=== PATIENT | male | born 1930 | race Caucasian/White ===

== ENCOUNTER 2017-03-16 07:16 | Emergency (ER) | payer OTHER, MEDICARE ==
[2017-03-16 07:34] VITALS: RESP 18; TEMP 98; O2SAT 97
--- NOTE | 2017-03-16 07:46 | EDPHY ---
H & P Time Seen by Provider: 03/16/17 07:26 HPI/ROS: HPI Skin tear. 87-year-old male by private vehicle. This patient was on a stepladder this last Tuesday. He slipped with his left foot. His left reynolds caught the edge of a ladder wrong and he sustained a skin tear to his mid anterior leg over the tibia. Reports he has been putting bacitracin on it and keeping it clean but it has not been healing. He denies any pain with weight-bearing on the left leg. No other injury or complaint. ROS: Constitutional: No fever, no chills. No weakness. Respiratory: No cough. No shortness of breath. Cardiac: No chest pain, no palpitations. Gastrointestinal: No abdominal pain, no vomiting, no diarrhea. Musculoskeletal: No back pain. No neck pain. As above. Skin: No rashes. As above. Neurological: No focal weakness or altered sensation. Past medical history: Coronary artery disease with bypass surgery. Hypertension, orthopedic surgeries. He is on aspirin. No other antiplatelet or anticoagulant medication. His primary care physician is Dr. Rosie Cuellar. Social history: He is here by himself. Physical Exam: General Appearance: Alert, no distress. This patient is responding to questions appropriately and in full sentences. This patient appears well- hydrated and well-nourished. Eyes: Pupils equal and round no pallor or injection. No lid edema, erythema or injection. Left lower extremity exam: Significant for a skin tear area about the size of his palm, 1% BSA, mid anterior to slightly lateral tibial area. Some of the skin remains folded back against the wound edge. This is very thin and friable. It has tears off if an attempt is made to cover the wound. There is no significant surrounding erythema, edema or warmth indicative of infection. No evidence of foreign body. The left lower extremity is neurovascularly intact. Neurological: Motor sensory function is grossly intact. Cranial nerves are normal. Gait is normal. Skin: Warm and dry, no rashes. As above. Musculoskeletal: Neck is supple and nontender. Extremities are symmetrical. All joints range without pain or impingement. Psychiatric: No agitation. No depression. Database: EKG: Imaging: Procedures: Emergency department course: Vital signs reviewed and are unremarkable. He is afebrile. What skin is left is not salvageable. LET was applied to the wound surface area. skin was then debrided and the wound area was cleansed gently. Bacitracin was then applied followed by a burn dressing. Plan will be to have the patient follow up with his primary care physician in 2 days for a wound check. I discussed infection precautions with him. Return to emergency department precautions reviewed. All of his questions were answered. He was discharged in good condition. Differential Diagnosis: The differential diagnosis on this patient includes but is not limited to skin tear. Cellulitis, abscess, infectious process, retained foreign body, fracture , subluxation, dislocation unlikely. This represents a partial list of diagnoses considered. These considerations are based on history, physical exam , past history, reassessment and diagnostic testing. Smoking Status: Former smoker Constitutional: Initial Vital Signs Temperature (C) 36.6 C 03/16/17 07:32 Heart Rate 94 03/16/17 07:32 Respiratory Rate 18 03/16/17 07:32 Blood Pressure 139/92 H 03/16/17 07:32 O2 Sat (%) 97 03/16/17 07:32 O2 Delivery Mode Room Air Allergies/Adverse Reactions: cephalexin [Cephalexin] Allergy (Unknown, Verified 03/29/15 20:01) Rash iodine [Iodine] Allergy (Unknown, Verified 03/29/15 20:01) Rash Penicillins Allergy (Verified 03/29/15 20:01) Home Medications: Medication Instructions Recorded Aspirin 81mg (OTC) 02/01/14 Atenolol 02/01/14 Simvastatin 02/01/14 Departure - Departure Disposition: Home, Routine, Self-Care Clinical Impression: Skin tear of left lower leg without complication Condition: Good Instructions: Skin Tear (ED) Additional Instructions: Read and follow provided instructions. Follow-up with your primary care physician, Dr. Rosie jeffrey, in 2 days for re -evaluation and wound check as discussed. Your dressing should be changed every 1-2 days with application of bacitracin. Keep the wound area clean. Ibuprofen dosin mg every 6 hours with meals for the next 3 days only. Return to the emergency department for significant swelling involving the wound area redness and warmth around the wound area, fever or other serious concerns. Referrals: ROSIE JAMES [Primary Care Provider] - As per Instructions
[2017-03-16 08:11] VITALS: BP 134/63; PULSE 74
== END 2017-03-16 08:10 | disposition home or self-care (01) ==
LOC: CED 07:16
DX: S81.812A Laceration without foreign body, left lower leg, initial encounter (principal); I25.810 Atherosclerosis of coronary artery bypass graft(s) without angina pectoris; I10 Essential (primary) hypertension; Z79.82 Long term (current) use of aspirin; Z87.891 Personal history of nicotine dependence; W11.XXXA Fall on and from ladder, initial encounter